=== PATIENT | female | born 1985 | race Caucasian/White ===

== ENCOUNTER 2020-11-08 19:21 | Emergency (ER) | payer OTHER, SELFPAY ==
--- NOTE | ~2020-11-08 | XR_ITS ---
EXAMINATION: XR TOES, LEFT CLINICAL INFORMATION: Trauma to the fifth toe. Deformity. COMPARISON: None TECHNIQUE: 3 views of the left toes were obtained. FINDINGS: There is a fracture of the midshaft of the proximal phalanx of fifth toe. There is an oblique fracture with displacement of the distal fracture fragment laterally. There is no dislocation. XR/XR toe LT min 2V IMPRESSION: Fracture of the proximal phalanx of fifth toe.
--- NOTE | 2020-11-08 19:55 | ED_ITS ---
HPI - Extremity Injury (Lower) General Chief Complaint: Extremity Injury, Lower Stated Complaint: toe inj Source: patient Mode of arrival: ambulatory Limitations: no limitations History of Present Illness HPI Narrative: 35-year-old female presents with the left 5th stubbed toe visibly dislocated. Patient has no other complaints at this time. MD complaint: foot injury Onset (ago): hour(s) (With the hour of arrival) Place: home Severity: moderate Severity scale (1-10): 7 Relieving factors: nothing Exacerbating factors: weight bearing, movement and palpation Context: direct blow Associated symptoms: snap/pop sensation and able to partially bear weight Other symptoms: none Related Data Allergies Allergy/AdvReac Type Severity Reaction Status Date / Time nickel [NICKEL] Allergy Unknown RASH Verified 11/08/20 20:26 Nickel Allergy Unknown unknown Uncoded 02/20/20 15:06 Pt states no known Allergy Unknown unknown Uncoded 02/20/20 15:06 food/medica Review of Systems Review of Systems: Constitutional: No Fever, No Chills ENT/Mouth: No Ear Pain, No Hoarseness, No sore throat Eyes: No Eye Pain, No Swelling, No Redness, No Foreign Body Cardiovascular: No Chest Pain, No SOB Respiratory: No Cough, No Dyspnea Gastrointestinal: No Nausea, No Vomiting, No Diarrhea, No abdominal Pain Genitourinary: No Dysuria, No Hematuria Musculoskeletal: positive left 5th toe pain, No Myalgias, No Joint Swelling Skin: No Skin lacerations, No rash Neuro: No Weakness, No Numbness, No Paresthesias, No Loss of Consciousness, No Dizziness, No Headache Psych: No Anxiety/Panic, No Depression Heme/Lymph: no easy bruising, no Lymphadenopathy Endocrine: No Polyuria, No Polydipsia Yes all other systems are reviewed and are negative [facility] Past Medical History Attestation statement: The following information was validated with the patient. Source: old records reviewed Medical History Anxiety History of cardiac murmur History of Ana Paula thyroiditis History of palpitations PCOS (polycystic ovarian syndrome) Surgical History H/O wisdom tooth extraction History of adenoidectomy History of sleeve gastrectomy History of tonsillectomy History of tubal ligation Family History Family History Father HTN (hypertension) Mother Asthma Son No problems noted. Daughter No problems noted. Sister No problems noted. Paternal Grandmother Breast cancer Maternal Aunt Uterine cancer Social History Social History Alcohol intake: current Alcohol intake frequency: a few times a month Advance Directives: No Advance Directives Information Provided: No Physical Exam Vital Signs: Vital Signs: Last Vital Signs Temp 97.0 F 11/08/20 20:03 Pulse 87 11/08/20 20:03 Resp 18 11/08/20 20:03 BP 165/85 H 11/08/20 20:03 Pulse Ox 98 11/08/20 20:03 Body Mass Index 27.4 Appearance: Alert. Oriented X3. No acute distress. Eyes: Pupils equal, round and reactive to light. ENT: Pharynx normal. Neck: Normal inspection. Neck supple. CVS: Normal heart rate and rhythm. Pulses normal. Respiratory: No respiratory distress. Breath sounds normal. Abdomen: Soft and nontender. Skin: Skin warm and dry. Normal skin color. Normal skin turgor. Extremities: No lower extremity edema. Visibly displaced left toe. Neuro: No motor deficit. No sensory deficit. Course Course Course Narrative: 35-year-old female presents with a displaced left 5th toe after stubbing it. Plan of care is for x-ray and to pull the toe back into place and lillian tape. Will give Motrin for pain management. Toe reduced into place. Patient tolerated procedure well. Brisk capillary refill and neurovascularly intact. Patient verbalized understanding of and agrees to plan of care discharge home. MDM - Extremity Injury (Lower) MDM Narrative Medical decision making narrative: Toe dislocation Differential Diagnosis Differential diagnosis: Likely fracture of toe Medical Records Attestation: I reviewed the patient's medical records. Imaging Data Foot x-ray: Attestation: I personally reviewed and interpreted this imaging study as follows: Discharge Plan Discharge Clinical Impression: Fracture of toe Qualifiers: Encounter type: initial encounter Toe: lesser toe Fracture type: closed Phalanx: distal Physeal involvement: unspecified Patient Disposition: Home, Self-Care Instructions: Toe Fracture (ED), R.I.C.E. Treatment (ED) Additional Instructions: You were evaluated for left toe fracture. We pulled this toe in place. Please keep the toes lillian-taped for the next 2 weeks. You may consider following up with primary care for pain persists. Use ice and elevation to help reduce swelling. Use Tylenol or Motrin as needed for pain management. Thank you for choosing this emergency department for evaluation. Please follow-up with primary care physician as needed. Return to the emergency department for any new, concerning, or worsening symptoms. Stand Alone Forms: Work/School Release
[2020-11-08 20:03] VITALS: BP 165/85; PULSE 87; RESP 18; TEMP 36.1; O2SAT 98; BMI 27.4
[2020-11-08] MEDS: Ibuprofen 600 MG TABLET PO (20:25)
== END 2020-11-08 21:10 | disposition home or self-care (01) ==
PROVIDERS: Emergency Provider Internal Medicine; PCP Internal Medicine
DX: S92.532A Displaced fracture of distal phalanx of left lesser toe(s), initial encounter for closed fracture (principal); W22.09XA Striking against other stationary object, initial encounter; Y93.9 Activity, unspecified; Y92.9 Unspecified place or not applicable; Y99.9 Unspecified external cause status
CPT/HCPCS: 28515; 73660; 99283; 99284

== ENCOUNTER → 2020-12-09 08:39 | Outpatient (BNVA) | payer OTHER, SELFPAY | PROVIDERS: PCP Internal Medicine; Visit Provider Surgery ==

== ENCOUNTER 2020-12-10 06:00 | Outpatient (REF) | payer OTHER, SELFPAY ==
[2020-12-10 08:06] LABS: MANUAL DIFF FLAG NO
[2020-12-10 08:13] LABS: Basophils Percent Auto 0.8 % (0-2); Eosinophils Absolute Auto 0.1 X10*3/uL (0.0-0.4); Eosinophils Percent Auto 2.6 % (0-4); Hematocrit 37.3 % (37-47); Hemoglobin 11.5 g/dl (12.0-16.0); Imm Gran Abs Auto 0.01 X10*3/uL (0.00-0.03); Imm Gran Pct Auto 0.2 % (0.0-0.4); Lymphocytes Absolute Auto 1.9 X10*3/uL (1.2-4.9); Lymphocytes Percent Auto 38.2 % (20-40); Mean Corpuscular HGB Conc 30.8 g/dl (31.0-35.0); Mean Corpuscular Hemoglobin 25.2 pg (27.0-33.0); Mean Corpuscular Volume 81.8 fL (80-98); Mean Platelet Volume 12.1 fL (9.4-12.3); Monocytes Absolute Auto 0.4 X10*3/uL (0.1-1.2); Monocytes Percent Auto 8.7 % (2-11); Neutrophils Absolute Auto 2.4 X10*3/uL (2.0-8.3); Neutrophils Percent Auto 49.5 % (45-73); Platelet Count 230 X10*3/uL (160-400); Red Blood Count 4.56 X10*6/uL (4.20-5.50); Red Cell Distribution Width 14.7 % (11.0-16.0); White Blood Count 4.9 X10*3/uL (4.8-10.8)
[2020-12-10 08:29] LABS: Estimated Average Glucose 97 mg/dL
[2020-12-10 09:02] LABS: Alanine Aminotransferase 19 U/L (0-31); Albumin Level 4.2 g/dL (3.5-5.0); Alkaline Phosphatase 65 U/L (39-117); Anion Gap 11 (12-20); Aspartate Amino Transferase 20 U/L (5-31); Bilirubin Total 0.5 mg/dL (0.0-1.0); Blood Urea Nitrogen 13 mg/dL (9-16); C Reactive Protein 0.06 mg/dL (< or = 0.50); Calcium 8.9 mg/dL (8.4-10.2); Carbon Dioxide 29 mmol/L (22-29); Chloride 108 mmol/L (96-108); Cholesterol 157 mg/dL; Estimated Glomerular Filt Rate > 60; Glucose Fasting 87 mg/dL (60-99); HDL Cholesterol 54 mg/dL; Iron 57 mcg/dL (30-160); LDL Cholesterol Calculated 95 mg/dl; Percent Iron Saturation 14 % (15-50); Potassium 4.4 mmol/L (3.3-5.1); Sodium 144 mmol/L (135-145); Total Iron Binding Capacity 414 mcg/dL (228-428); Total Protein 6.2 g/dL (6.5-8.0); Triglycerides 43 mg/dL; Unsaturated Iron Binding 357 ug/dL
[2020-12-10 09:05] LABS: Vitamin B12 478 pg/mL (200-900)
[2020-12-10 09:23] LABS: Thyroid Stimulating Hormone 1.51 uIU/mL (0.32-4.0); Vitamin D 25-OH Total 31.1 ng/mL (>30)
[2020-12-14 08:21] LABS: Zinc 75 mcg/dL (60-130)
[2020-12-15 11:01] LABS: Vitamin B1 <6 nmol/L (8-30)
[2020-12-16 02:17] LABS: Vitamin A 34 mcg/dL (38-98)
== END 2020-12-10 06:01 | disposition home or self-care (01) ==
LOC: HO.LAB 06:00
PROVIDERS: PCP Internal Medicine; Visit Provider Surgery
DX: Z01.818 Encounter for other preprocedural examination (principal); K91.2 Postsurgical malabsorption, not elsewhere classified; Z90.3 Acquired absence of stomach [part of]
CPT/HCPCS: 36415; 80053; 80061; 82306; 82607; 83036; 83540; 84425; 84443; 84590; 84630; 85025; 86140

== ENCOUNTER 2020-12-25 04:36 | Emergency (ER) | payer OTHER, SELFPAY ==
--- NOTE | ~2020-12-25 | XR_ITS ---
EXAMINATION: XR SHOULDER, RIGHT CLINICAL INFORMATION: Shoulder pain COMPARISON: None TECHNIQUE: Three views of the right shoulder. FINDINGS: Small calcifications adjacent to the humeral head due to calcific tendinosis/bursitis. Largest calcification measuring about 4 mm. The glenohumeral joint and the acromioclavicular joints are normal. XR/XR shoulder RT min 2V IMPRESSION: Calcific tendinosis/bursitis.
[2020-12-25 04:44] VITALS: BP 159/83; PULSE 94; RESP 16; TEMP 36.6; O2SAT 99; BMI 27.4
--- NOTE | 2020-12-25 05:20 | ED_ITS ---
HPI - Extremity Problem General Chief complaint: Extremity Injury, Upper Stated complaint: Shoulder pain Time Seen by Provider: 12/25/20 05:20 Source: patient Mode of arrival: ambulatory Limitations: no limitations History of Present Illness HPI Narrative: 35-year-old female came in for evaluation of her right shoulder pain. This is a 35-year-old came in for evaluation of right shoulder pain that started 5 days ago after was kayaking, patient also work which she has to carry boxes, pain right shoulder is gradually getting worse since 5 days ago, increased with movement, nothing relieves the pain, no trauma or falling down. Related Data Home Medications Medication Instructions Recorded Confirmed cholecalciferol (vitamin D3) 50 50 mcg PO DAILY 12/09/20 12/09/20 mcg (2,000 unit) capsule multivitamin (Daily Multi-Vitamin) 1 tab PO DAILY 12/09/20 12/09/20 vitamin B complex (B 1 tab PO DAILY 12/09/20 12/09/20 Complex-Vitamin B12) Previous Rx's Medication Instructions Recorded omeprazole 20 mg capsule,delayed 20 mg PO DAILY #30 cap 12/09/20 release thiamine HCl (vitamin B1) 100 mg 100 mg PO DAILY #30 tab 12/16/20 tablet vitamin A palmitate 10,000 unit 20,000 unit PO DAILY 30 Days #60 12/16/20 tablet tab ibuprofen 600 mg tablet 600 mg PO Q8H PRN #20 tab 12/25/20 Allergies Allergy/AdvReac Type Severity Reaction Status Date / Time nickel [NICKEL] Allergy Unknown RASH Verified 12/09/20 08:44 Nickel Allergy Unknown unknown Uncoded 12/09/20 08:44 Pt states no known Allergy Unknown unknown Uncoded 12/09/20 08:44 food/medica Review of Systems Review of Systems: All other systems are reviewed and are negative Constitutional: Reports as per HPI and Reports no additional constitutional complaints Eyes: Reports as per HPI and Reports no additional eye complaints Reports system reviewed and no additional complaints, except as documented Cardiovascular: Reports as per HPI and Reports no additional cardiovascular complaints Respiratory: Reports as per HPI and Reports no additional respiratory complaints Gastrointestinal: Reports as per HPI and Reports no additional gastrointestinal complaints Genitourinary: Reports no additional female genitourinary complaints Musculoskeletal: Reports no additional musculoskeletal complaints Skin/Breast: Reports system reviewed and no additional complaints, except as docu Psychiatric: Reports no additional psychiatric complaints Endocrine: Reports no additional endocrine complaints Hematologic/Lymphatic: Reports no additional hematologic/lymphatic complaints Allergic/Immunologic: Reports no additional allergic/immunologic complaints Reports system reviewed and no additional complaints, except as documented and Reports Abnormal speech present [facility] Past Medical History Medical History Anxiety History of cardiac murmur History of Ana Paula thyroiditis History of palpitations PCOS (polycystic ovarian syndrome) Surgical History H/O wisdom tooth extraction History of adenoidectomy History of sleeve gastrectomy History of tonsillectomy History of tubal ligation Family History Family History Father HTN (hypertension) Mother Asthma Son No problems noted. Daughter No problems noted. Sister No problems noted. Paternal Grandmother Breast cancer Maternal Aunt Uterine cancer Social History Social History Alcohol intake: current Alcohol intake frequency: a few times a month Patient Tobacco Use Status: Former Tobacco user Advance Directives: No Advance Directives Information Provided: No Patient : No Physical Exam Vital Signs: Vital Signs: Last Vital Signs Temp 97.8 F 12/25/20 04:44 Pulse 94 12/25/20 04:44 Resp 16 12/25/20 04:44 BP 159/83 H 12/25/20 04:44 Pulse Ox 99 12/25/20 04:44 Body Mass Index 27.4 Vital signs have been reviewed as appeared to be correct. Blood pressure elevated.Heart rate normal. Respiration rate normal. Temperature normal. Oxygen saturation normal. Appearance: Alert. Oriented X3. No acute distress. Head: Normal external exam. Normocephalic. Atraumatic. No Duncan signs noted. No raccoon eyes noted Eyes: PERRLA. EOMI. Conjunctiva and sclera normal. Eyelids normal. ENT: TM's Normal. Pharynx normal. Uvula midline. Moist mucous membranes. No trismus noted. No drooling noted. No muffled voice noted. Neck: Normal inspection. Neck supple. FROM. No adenopathy. Thyroid Normal. No meningeal signs. No neck mass noted. CVS: Normal heart rate and rhythm. Heart sound normal. No murmurs noted. Pulses normal throughout. Respiratory: No respiratory distress. Painless inspiration. Breath sounds normal. No wheezes/rales/rhonchi noted. Chest nontender. No accessory muscle usage noted or decreased air movement noted. Abdomen: Soft and nontender. Bowel sounds normal in all 4 quadrants. No distention noted. No organomegaly noted. No visible injury noted. Back: No CVA tenderness. Full range of motion noted. Skin: Skin warm and dry. Normal skin color. Normal skin turgor. No rashes/lesions/lacerations noted. Extremities: Right shoulder held and adduction position, unable to abduct the right shoulder, unable to raise the shoulder beyond 15 degree, no deformity, no step-off. Neurovascularly intact. Neuro: Oriented X 3. Cranial nerve exam: II-XII are grossly intact No motor deficit. No sensory deficit. Reflexes normal. Course Course Course Narrative: Assessment and plan. 35-year-old female with right shoulder pain and tenderness gradual onset since 5 days ago after kayaking with no definitive trauma or fall. Rest, ice, sling, NSAIDs, follow up with Ortho. MDM - Extremity (Nontraumatic) Imaging Data Right shoulder x-ray: Radiologist's impression: Small calcifications adjacent to the humeral head due to calcific tendinosis/bursitis. Largest calcification measuring about 4 mm. The glenohumeral joint and the acromioclavicular joints are normal.? Discharge Plan Discharge Clinical Impression: Right rotator cuff tendinitis Patient Disposition: Home, Self-Care Instructions: Rotator Cuff Tendinitis (ED) Prescriptions: New ibuprofen 600 mg tablet 600 mg PO Q8H PRN (Reason: pain) Qty: 20 RF: 0 No Action thiamine HCl (vitamin B1) 100 mg tablet 100 mg PO DAILY Qty: 30 RF: 0 vitamin A palmitate 10,000 unit tablet 20,000 unit PO DAILY 30 Days Qty: 60 RF: 0 multivitamin [Daily Multi-Vitamin] Tablet 1 tab PO DAILY RF: 0 vitamin B complex [B Complex-Vitamin B12] Tablet 1 tab PO DAILY RF: 0 cholecalciferol (vitamin D3) 50 mcg (2,000 unit) capsule 50 mcg PO DAILY RF: 0 omeprazole 20 mg capsule,delayed release(DR/EC) 20 mg PO DAILY Qty: 30 RF: 12 Referrals: Zia Mckinney MD [Physician] - 2 days Stand Alone Forms: Work/School Release
[2020-12-25] MEDS: Ibuprofen 600 MG TABLET PO (06:11)
== END 2020-12-25 06:21 | disposition home or self-care (01) ==
PROVIDERS: Emergency Provider Emergency Medicine; PCP Internal Medicine
DX: M75.31 Calcific tendinitis of right shoulder (principal); M25.511 Pain in right shoulder
CPT/HCPCS: 73030; 99284

== ENCOUNTER 2022-02-13 12:59 | Emergency (ER) | payer OTHER, SELFPAY ==
[2022-02-13 13:02] VITALS: BP 173/92; PULSE 99; RESP 18; TEMP 36.9; O2SAT 100; BMI 27.8
[2022-02-13 15:00] VITALS: BP 150/93; PULSE 77; RESP 16; TEMP 36.3; O2SAT 100
--- NOTE | 2022-02-13 15:08 | ED_ITS ---
HPI - Back Pain/Injury General Chief Complaint: Back Pain/Injury Stated Complaint: back pain Time Seen by Provider: 02/13/22 14:57 Source: patient Mode of arrival: ambulatory History of Present Illness HPI Narrative: 36-year-old female with a past medical history of anxiety, PCOS, presenting to the ED complaining of low back pain > left x4 weeks with intermittent radiation down RLE. Denies known injury, trauma or fall. Does report when in [place] for vacation slipped on rocks, denies landing/falling on back. Denies numbness, tingling, weakness, urine incontinence/retention, fever MD elicited complaint: back pain and back injury Onset (ago): week(s) Related Data Home Medications Medication Instructions Recorded Confirmed cholecalciferol (vitamin D3) 50 50 mcg PO DAILY 12/09/20 12/09/20 mcg (2,000 unit) capsule multivitamin (Daily Multi-Vitamin 1 tab PO DAILY 12/09/20 12/09/20 tablet) vitamin B complex (B 1 tab PO DAILY 12/09/20 12/09/20 Complex-Vitamin B12 tablet) Previous Rx's Medication Instructions Recorded omeprazole 20 mg capsule,delayed 20 mg PO DAILY #30 caps 12/09/20 release thiamine HCl (vitamin B1) 100 mg 100 mg PO DAILY #30 tabs 12/16/20 tablet vitamin A palmitate 10,000 unit 20,000 unit PO DAILY 30 days #60 12/16/20 tablet tabs ibuprofen 600 mg tablet 600 mg PO Q8H PRN pain #20 tabs 12/25/20 acetaminophen 500 mg tablet 500 mg PO Q6H PRN fever or pain 02/13/22 (Tylenol Extra Strength) #14 tabs cyclobenzaprine 5 mg tablet 5 mg PO Q8H PRN pain (scale score 02/13/22 7-10) 5 days #14 tabs lidocaine 5 % topical patch 1 patch topical DAILY PRN pain #30 02/13/22 (Lidoderm) ea naproxen 500 mg tablet 500 mg PO BID PRN pain 10 days #20 02/13/22 tabs Allergies Allergy/AdvReac Type Severity Reaction Status Date / Time nickel [NICKEL] Allergy Unknown RASH Verified 12/09/20 08:44 Nickel Allergy Unknown unknown Uncoded 12/09/20 08:44 Pt states no known Allergy Unknown unknown Uncoded 12/09/20 08:44 food/medica Review of Systems Review of Systems: Constitutional: No Fever, No Chills ENT/Mouth: No Ear Pain, No Nasal Congestion, No sore throat, No Rhinorrhea, No Swallowing Difficulty Cardiovascular: No Chest Pain, No SOB Respiratory: No Cough, No Sputum, No Wheezing Gastrointestinal: No Nausea, No Vomiting, No Diarrhea, No Constipation, No Abdominal pain Genitourinary: No Dysuria, No Urinary Frequency, No Hematuria, No Urinary Incontinence/retention, No Flank Pain Musculoskeletal: + joint pain, No Myalgias, No Joint Swelling Skin: No Skin Lesions, No rash Neuro: No Weakness, No Numbness, No Paresthesias Yes all other systems are reviewed and are negative Constitutional: Constitutional: Reports as per [facility] Past Medical History Attestation statement: The following information was validated with the patient. Medical History Anxiety History of cardiac murmur History of Ana Paula thyroiditis History of palpitations PCOS (polycystic ovarian syndrome) Surgical History H/O wisdom tooth extraction History of adenoidectomy History of sleeve gastrectomy History of tonsillectomy History of tubal ligation Family History Family History Father HTN (hypertension) Mother Asthma Son No problems noted. Daughter No problems noted. Sister No problems noted. Paternal Grandmother Breast cancer Maternal Aunt Uterine cancer Social History Social History Alcohol intake: current Alcohol intake frequency: holidays/special occasions only Patient Tobacco Use Status: Former Tobacco user Advance Directives: No Advance Directives Information Provided: No Physical Exam Vital Signs: Vital Signs: Last Vital Signs Temp 97.3 F 02/13/22 15:00 Pulse 77 02/13/22 15:00 Resp 16 02/13/22 15:00 BP 150/93 H 02/13/22 15:00 Pulse Ox 100 02/13/22 15:00 O2 Del Method 02/13/22 15:00 BMI result Body Mass Index 27.8 Const: General: cooperative, healthy appearing and no acute distress Orientation/consciousness: patient oriented x3 Limitations: no limitations HEENT: Head: Yes normal to inspection and Yes atraumatic Ears: hearing ermelinda sly normal bilaterally General nose exam: Normal external nose present Face and sinus: Yes normal facial exam Eyes: General: appearance normal, both eyes and all related structures EOM: EOMs intact bilaterally Neck: Neck: Yes normal visual inspection and Yes no meningeal signs Resp: Effort & Inspection: normal respiratory effort and no respiratory distress Cardio: Rate: regular rate Heart sounds: S1 normal heart sound present and S2 normal heart sound present GI: Inspection: Yes normal to inspection : General: Yes no CVA tenderness Back/Spine/Pelvis: Other: No midline thoracic/lumbar spinous tenderness/step-off or deformity. + L sided lower buttock MSK tenderness to palpation Back: no CVA tenderness Skin: Rashes: no rashes Wounds: no wounds Neuro: Other: Strength intact throughout. No saddle anesthesia. Sensation intact to light touch. Neurovascular intact distally General: patient oriented x3, gait normal, tone normal, moves all extremities, no meningeal signs and no focal motor deficits Gait exam (Neuro): Normal gait present Motor exam (neuro): 5/5 motor strength present throughout and strength normal Extrem: General: Yes normal to inspection MDM - Back Pain/Injury MDM Narrative Medical decision making narrative: 36-year-old female with a past medical history of anxiety, PCOS, presenting to the ED complaining of low back pain > left x4 weeks with intermittent radiation down RLE. On exam vital signs stable, NAD, nontoxic appearing, no midline spinous tenderness throughout or red flag symptoms. Concern for MSK pain/strain vs muscle spasming vs herniated disc. Low suspicion for renal stone/pyelo, cauda equina, or cord compression Plan: Symptomatic treatment, PCP follow-up Differential Diagnosis Differential diagnosis: Likely lumbar radiculopathy, sciatica and strain of lumbar region Medical Records Attestation: I reviewed the patient's medical records. Lab Data Attestation: I reviewed the patient's lab results. Discharge Plan Discharge Clinical Impression: Strain of lumbar region, Lumbar radiculopathy Patient Disposition: Home, Self-Care Instructions: Low Back Strain (ED), Lumbar Radiculopathy (ED) Additional Instructions: Your pain is likely musculoskeletal Flexeril is a muscle relaxer, take at night as it makes you drowsy, do not drive, drink alcohol, or operate machinery while taking it Naproxen as an anti-inflammatory / pain medication, take with food Lidoderm patches are numbing patches, apply to painful area In addition take Tylenol at home If symptoms persist or worsen, pain becomes unbearable, you developed urinary retention or incontinence, or weakness return to the ED Prescriptions: New acetaminophen [Tylenol Extra Strength] 500 mg tablet 500 mg PO Q6H PRN (Reason: fever or pain) Qty: 14 0RF lidocaine [Lidoderm] 5 % adhesive patch,medicated 1 patch topical DAILY MDD remove after 12 hours PRN (Reason: pain) Qty: 30 0RF Rx Instructions: leave on most painful area for up to 12 hrs naproxen 500 mg tablet 500 mg PO BID PRN (Reason: pain) 10 Days Qty: 20 0RF cyclobenzaprine 5 mg tablet 5 mg PO Q8H PRN (Reason: pain (scale score 7-10)) 5 Days Qty: 14 0RF No Action thiamine HCl (vitamin B1) 100 mg tablet 100 mg PO DAILY Qty: 30 0RF vitamin A palmitate 10,000 unit tablet 20,000 unit PO DAILY 30 Days Qty: 60 0RF ibuprofen 600 mg tablet 600 mg PO Q8H PRN (Reason: pain) Qty: 20 0RF multivitamin [Daily Multi-Vitamin] Tablet 1 tab PO DAILY vitamin B complex [B Complex-Vitamin B12] Tablet 1 tab PO DAILY cholecalciferol (vitamin D3) 50 mcg (2,000 unit) capsule 50 mcg PO DAILY omeprazole 20 mg capsule,delayed release(DR/EC) 20 mg PO DAILY Qty: 30 12RF Referrals: Gary Lovelace DO, MD [Primary Care Provider] - 1 week Stand Alone Forms: Work/School Release
[2022-02-13] MEDS: Lidocaine 4 % Patch ADH..PATCH 1 PATCH TRANSDERMA (15:34)
[2022-02-13] MEDS: Ketorolac Tromethamine 30 MG/ML VIAL IM (15:34)
== END 2022-02-13 16:01 | disposition home or self-care (01) ==
PROVIDERS: Emergency Provider Emergency Medicine; PCP Internal Medicine
DX: S39.012A Strain of muscle, fascia and tendon of lower back, initial encounter (principal); W01.198A Fall on same level from slipping, tripping and stumbling with subsequent striking against other object, initial encounter; M54.16 Radiculopathy, lumbar region; Y93.89 Activity, other specified; Y92.89 Other specified places as the place of occurrence of the external cause; Y99.9 Unspecified external cause status
CPT/HCPCS: 96372; 99283; 99284; J1885

== ENCOUNTER 2022-05-14 06:03 | Outpatient (REF) | payer BC, SELFPAY ==
[2022-05-14 06:20] LABS: MANUAL DIFF FLAG NO
[2022-05-14 07:43] LABS: Basophils Percent Auto 1.1 % (0-2); Eosinophils Absolute Auto 0.1 X10*3/uL (0.0-0.4); Eosinophils Percent Auto 2.5 % (0-4); Hematocrit 36.2 % (37.0-47.0); Hemoglobin 11.5 g/dl (12.0-16.0); Lymphocytes Absolute Auto 1.5 X10*3/uL (1.2-4.9); Lymphocytes Percent Auto 40.9 % (20-40); Mean Corpuscular HGB Conc 31.8 g/dl (31.0-35.0); Mean Corpuscular Hemoglobin 26.4 pg (27.0-33.0); Monocytes Absolute Auto 0.3 X10*3/uL (0.1-1.2); Monocytes Percent Auto 8.2 % (2-11); Neutrophils Absolute Auto 1.7 x10*3/uL (2.0-8.3); Neutrophils Percent Auto 47.3 % (45-73); Platelet Count 228 X10*3/uL (160-400); Red Blood Count 4.36 X10*6/uL (4.20-5.50); Red Cell Distribution Width 13.7 % (11.0-16.0); White Blood Count 3.7 X10*3/uL (4.8-10.8)
[2022-05-14 08:16] LABS: Estimated Average Glucose 94 mg/dL; Hemoglobin A1c % 4.9 %
[2022-05-14 08:22] LABS: Alanine Aminotransferase 19 U/L (0-31); Albumin Level 3.9 g/dL (3.5-5.0); Alkaline Phosphatase 77 U/L (39-117); Anion Gap 14 (12-20); Aspartate Amino Transferase 25 U/L (5-31); Bilirubin Total 0.6 mg/dL (0.0-1.0); Blood Urea Nitrogen 12 mg/dL (9-16); C Reactive Protein < 0.04 mg/dL (< or = 0.50); Calcium 9.1 mg/dL (8.4-10.2); Carbon Dioxide 28 mmol/L (22-29); Chloride 105 mmol/L (96-108); Cholesterol 174 mg/dL; Estimated Glomerular Filt Rate > 60; Glucose Random 84 mg/dL (60-115); HDL Cholesterol 59 mg/dL; Iron 77 mcg/dL (30-160); LDL Cholesterol Calculated 104 mg/dl; Percent Iron Saturation 20 % (15-50); Potassium 4.5 mmol/L (3.3-5.1); Sodium 142 mmol/L (135-145); Total Iron Binding Capacity 376 mcg/dL (228-428); Triglycerides 59 mg/dL; Unsaturated Iron Binding 299 ug/dL
[2022-05-14 08:43] LABS: Ferritin 6 ng/mL (10-122); Insulin 4 uU/mL (2-29); TSH reflex Free T4 1.36 uIU/mL (0.32-4.0); Vitamin D 25-OH Total 39.5 ng/mL (>30)
[2022-05-14 08:54] LABS: Vitamin B12 498 pg/mL (200-900)
[2022-05-15 13:37] LABS: Calcium (PTHI) 9.1 mg/dL (8.6-10.2); PTHI 48 pg/mL (16-77)
[2022-05-17 23:06] LABS: Vitamin A 33 mcg/dL (38-98)
[2022-05-18 06:28] LABS: Vitamin B1 37 nmol/L (8-30)
[2022-05-18 15:38] LABS: Zinc 68 mcg/dL (60-130)
== END 2022-05-14 06:04 | disposition home or self-care (01) ==
LOC: HO.LAB 06:03
PROVIDERS: PCP Internal Medicine; Visit Provider Physician Assistant Surgical
DX: K91.2 Postsurgical malabsorption, not elsewhere classified (principal); Z90.3 Acquired absence of stomach [part of]
CPT/HCPCS: 36415; 80053; 80061; 82306; 82607; 82728; 82746; 83036; 83525; 83540; 83970; 84425; 84443; 84590; 84630; 85025; 86140

== ENCOUNTER → 2022-05-15 13:21 | Outpatient (BNVA) | payer BC, SELFPAY | PROVIDERS: PCP Internal Medicine; Visit Provider Physician Assistant Surgical | DX: E66.9 Obesity, unspecified (principal) ==

== ENCOUNTER 2022-10-01 12:51 | Emergency (ER) | payer OTHER, SELFPAY ==
[2022-10-01 13:31] VITALS: BP 161/106; PULSE 96; RESP 16; TEMP 36.7; O2SAT 100; BMI 27.6
--- NOTE | 2022-10-01 13:32 | ED.GENADULT ---
HPI - General Adult General Chief complaint: General Medical Stated complaint: tingling in hands and feet, pressure in head Time Seen by Provider: 10/01/22 15:52 Source: patient and family Mode of arrival: ambulatory Limitations: no limitations History of Present Illness HPI narrative: 37-year-old female presents to emergency department with her significant other for multiple complaints. Patient states that she has been noticing tingling to her perioral area her hands into her feet. That was her initial complaint and she complained about this to triage as well as myself when a finished doing this and explaining the plan as far as electrolytes specially since she recently also started Wellbutrin she states what about my back pain she has she has chronic back pain she has had multiple images of her back they never given her an answer and she thought that was related to her facial hand and feet numbing I did explain that is very unlikely that they are all related to the feet could be related. Related Data Home Medications Medication Instructions Recorded Confirmed cholecalciferol (vitamin D3) 50 50 mcg PO DAILY 12/09/20 05/15/22 mcg (2,000 unit) capsule multivitamin (Daily Multi-Vitamin 1 tab PO DAILY 12/09/20 05/15/22 tablet) vitamin B complex (B 1 tab PO DAILY 12/09/20 05/15/22 Complex-Vitamin B12 tablet) Previous Rx's Medication Instructions Recorded ibuprofen 600 mg tablet 600 mg PO Q8H PRN pain #20 tabs 12/25/20 vitamin A palmitate 3,000 mcg 10,000 unit PO DAILY #90 caps 05/19/22 (10,000 unit) capsule iron,carbonyl 65 mg-vitamin C 125 1 tab PO BEDTIME #90 tabs 05/20/22 mg tablet,delayed release (Vitron-C) prednisone 20 mg tablet 60 mg PO DAILY Asthma 5 days #15 10/01/22 tabs Allergies Allergy/AdvReac Type Severity Reaction Status Date / Time nickel [NICKEL] Allergy Unknown RASH Verified 10/01/22 13:31 Nickel Allergy Unknown unknown Uncoded 12/09/20 08:44 Pt states no known Allergy Unknown unknown Uncoded 12/09/20 08:44 food/medica Review of Systems Review of Systems: Review of systems: General: Patient denies any fever chills recent illness or falls Musculoskeletal: Lower back pain denies any or body aches or other injuries HEENT: denies headache, runny nose, ear pain Respiratory: denies shortness of breath, cough Cardiovascular: no chest pain or palpitations : denies dysuria, frequency Abdomen: no nausea vomiting denies abdominal pain Extremities: no swelling, no pain Skin: no diaphoresis Yes all other systems are reviewed and are negative PMFSH Past Medical History Medical History Anxiety History of cardiac murmur History of [place] thyroiditis History of palpitations PCOS (polycystic ovarian syndrome) Surgical History H/O wisdom tooth extraction History of adenoidectomy History of sleeve gastrectomy History of tonsillectomy History of tubal ligation Family History Family History Father HTN (hypertension) Mother Asthma Son No problems noted. Daughter No problems noted. Sister No problems noted. Paternal Grandmother Breast cancer Maternal Aunt Uterine cancer Social History Social History (Updated 05/15/22 @ 13:42 by Isabelle Sepulveda CMA) Alcohol intake: current Alcohol intake frequency: holidays/special occasions only Patient Tobacco Use Status: Former Tobacco user Smoked in Last 30 Days: No Use of substances other than those prescribed or required for medical reasons: No Advance Directives: No Advance Directives Information Provided: No Physical Exam ED Vital Signs: Vital Signs - 24 hr 10/01/22 13:31 10/01/22 15:35 10/01/22 16:01 Temperature 98.1 F Pulse Rate 96 118 H 111 H Respiratory Rate 16 18 18 Blood Pressure 161/106 H 154/101 H 151/101 H Pulse Oximetry 100 100 Oxygen Delivery Method Room Air Room Air Room Air BMI result Body Mass Index 27.6 Neurological exam: CN II- XII tested. Patient is alert and oriented to person place and time. Patient has no dysphagia or dysarthia, denies good vision in all four vision hernandez no nystagmus on exam, good strength to upper and lower extremities with normal reflexes to brachioradialis, wrist, patella and achilles. Negative romberg, good finger to nose and heel to munoz. General: Well-appearing well-nourished in no signs of distress HEENT: Normocephalic atraumatic Neck: No signs of JVD, no masses no tenderness or lymphadenopathy Cardiovascular: Regular rate and rhythm Respiratory: Clear to auscultation bilaterally Abdomen: Soft nontender no masses Extremities: Normal pedal pulses no signs of edema Skin: Dry warm no rashes Back: No tenderness full ROM Course Course Course Narrative: RME- 37 year old female presents for evaluation of tingling in her hands, feet, lips, posterior scalp. Lower back pain. Symptoms started 2 days ago. She reports starting Wellbutrin 4 days ago. History of intestinal absorption for labs including magnesium and phosphorus Medical Decision Making Medical Decision Making [facility] Narrative: Patient with multiple complaints she has tingling to her hands or feet which he thought were related to her back it did explain to her that this very likely is the innervation of her hands is not anything related to her back she has no back pain red flags she has no numbness no loss of bowel or bladder she has no fever she did have sleeve gastrectomy which could decrease her ability to absorb suture and vitamins but she is taking magnesium her labs are checked and are normal. Phosphorus and magnesium were also checked and are normal. I spent extra time explained to the patient that initially find everything here in the emergency department she has had some chronic back issues with worsening pain she states that she took muscle relaxer without complete resolution of her symptoms tried to explain the most relaxants her neck after that really treat pain or laxity muscles recommended short course of prednisone for the patient. This could be a simple as her recent start of her medication issues restart Wellbutrin 4 days ago. Differential Diagnosis Differential Diagnoses: The differential diagnosis associated with the presentation includes Electrolyte abnormality decreased absorption due to her gastrectomy chronic back pain reaction to her new medication 4 days ago she recently started Wellbutrin. Less likely cauda equina or other spinal issue. Lab Data [facility] Lab Attestation statement: I reviewed the patient's lab results. 10/01/22 13:57 10/01/22 13:57 Labs: Lab Results 10/01/22 10/01/22 Range/Units 13:57 13:57 WBC 6.6 (4.8-10.8) X10*3/uL RBC 4.49 (4.20-5.50) X10*6/uL Hgb 11.3 L (12.0-16.0) g/dl Hct 36.2 L (37.0-47.0) % MCV 80.6 (80.0-98.0) fL MCH 25.2 L (27.0-33.0) pg MCHC 31.2 (31.0-35.0) g/dl RDW 13.9 (11.0-16.0) % Plt Count 239 (160-400) X10*3/uL MPV 11.0 (9.4-12.3) fL Immature Gran % (Auto) 0.3 (0.0-0.4) % Neut % (Auto) 66.0 (45-73) % Lymph % (Auto) 23.6 (20-40) % Lewis % (Auto) 8.5 (2-11) % Eos % (Auto) 0.8 (0-4) % Baso % (Auto) 0.8 (0-2) % Lymph # (Auto) 1.6 (1.2-4.9) X10*3/uL Lewis # (Auto) 0.6 (0.1-1.2) X10*3/uL Eos # (Auto) 0.1 (0.0-0.4) X10*3/uL Baso # (Auto) 0.1 (0.0-0.2) X10*3/uL Abs Immat Gran (auto) 0.02 (0.00-0.03) X10*3/uL Absolute Neuts (auto) 4.4 (2.0-8.3) x10*3/uL Absolute Nucleated RBC 0.000 (0.0-0.012) X10*3/uL Nucleated RBC % (auto) 0.0 (0.0-0.2) /100WBC Sodium 142 (135-145) mmol/L Potassium 4.4 (3.3-5.1) mmol/L Chloride 107 (96-108) mmol/L Carbon Dioxide 28 (22-29) mmol/L Anion Gap 11 L (12-20) BUN 11 (9-16) mg/dL Creatinine 0.77 (0.5-1.4) mg/dL Estim Creat Clear Calc 106.8 Estimated GFR > 60 Random Glucose 99 (60-115) mg/dL Calcium 9.6 (8.4-10.2) mg/dL Phosphorus 3.4 (2.7-4.5) mg/dL Magnesium 2.1 (1.6-2.6) mg/dL Total Bilirubin 0.4 (0.0-1.0) mg/dL AST 23 (5-31) U/L ALT 19 (0-31) U/L Alkaline Phosphatase 79 (39-117) U/L Total Protein 6.7 (6.5-8.0) g/dL Albumin 4.3 (3.5-5.0) g/dL Lipase 24 (8-78) U/L Independent Historian Clinical information obtained from an independent historian. History obtained from or confirmed by: Spouse External Record Review External record reviewed: Inpatient record and Office record Discharge Plan Discharge Clinical Impression: Paresthesia and pain of both upper extremities, Paresthesia of both feet Patient Disposition: Home, Self-Care Instructions: Paresthesia (ED) Additional Instructions: You were seen in the emergency department for tingling of her hands feet mouth and head. You had labs done including phosphorus and magnesium which are not typically done in the emergency department workup which were all normal. Please call follow-up with her doctor if you have any other concerns please do not hesitate to come back to emergency department. I gave you information to follow-up with a neurologist about this recurrent tingling as well as her back pain. Prescriptions: New prednisone 20 mg tablet 60 mg PO DAILY 5 Days Qty: 15 0RF No Action vitamin A palmitate 10,000 unit capsule 10,000 unit PO DAILY Qty: 90 3RF Vitron-C 65 mg iron- 125 mg tablet,delayed release (DR/EC) 1 tab PO BEDTIME Qty: 90 3RF ibuprofen 600 mg tablet 600 mg PO Q8H PRN (Reason: pain) Qty: 20 0RF multivitamin [Daily Multi-Vitamin] Tablet 1 tab PO DAILY vitamin B complex [B Complex-Vitamin B12] Tablet 1 tab PO DAILY cholecalciferol (vitamin D3) 50 mcg (2,000 unit) capsule 50 mcg PO DAILY Referrals: Shawanda Diaz MD [Physician] - (Please call to follow up for your hands and feet tingling. If you have any other concerns please return to the ED.)
[2022-10-01 14:00] LABS: MANUAL DIFF FLAG NO
[2022-10-01 14:01] LABS: Basophils Absolute Auto 0.1 X10*3/uL (0.0-0.2); Basophils Percent Auto 0.8 % (0-2); Eosinophils Absolute Auto 0.1 X10*3/uL (0.0-0.4); Eosinophils Percent Auto 0.8 % (0-4); Hematocrit 36.2 % (37.0-47.0); Hemoglobin 11.3 g/dl (12.0-16.0); Imm Gran Abs Auto 0.02 X10*3/uL (0.00-0.03); Imm Gran Pct Auto 0.3 % (0.0-0.4); Lymphocytes Absolute Auto 1.6 X10*3/uL (1.2-4.9); Lymphocytes Percent Auto 23.6 % (20-40); Mean Corpuscular HGB Conc 31.2 g/dl (31.0-35.0); Mean Corpuscular Hemoglobin 25.2 pg (27.0-33.0); Mean Corpuscular Volume 80.6 fL (80.0-98.0); Monocytes Absolute Auto 0.6 X10*3/uL (0.1-1.2); Monocytes Percent Auto 8.5 % (2-11); Neutrophils Absolute Auto 4.4 x10*3/uL (2.0-8.3); Platelet Count 239 X10*3/uL (160-400); Red Blood Count 4.49 X10*6/uL (4.20-5.50); Red Cell Distribution Width 13.9 % (11.0-16.0); White Blood Count 6.6 X10*3/uL (4.8-10.8)
[2022-10-01 14:21] LABS: Alanine Aminotransferase 19 U/L (0-31); Albumin Level 4.3 g/dL (3.5-5.0); Alkaline Phosphatase 79 U/L (39-117); Anion Gap 11 (12-20); Aspartate Amino Transferase 23 U/L (5-31); Bilirubin Total 0.4 mg/dL (0.0-1.0); Blood Urea Nitrogen 11 mg/dL (9-16); Calcium 9.6 mg/dL (8.4-10.2); Carbon Dioxide 28 mmol/L (22-29); Chloride 107 mmol/L (96-108); Creatinine Clr Calc Pharmacy 106.8; Estimated Glomerular Filt Rate > 60; Glucose Random 99 mg/dL (60-115); Lipase 24 U/L (8-78); Magnesium 2.1 mg/dL (1.6-2.6); Phosphorus 3.4 mg/dL (2.7-4.5); Potassium 4.4 mmol/L (3.3-5.1); Sodium 142 mmol/L (135-145); Total Protein 6.7 g/dL (6.5-8.0)
[2022-10-01 15:35] VITALS: BP 154/101; PULSE 118; RESP 18
--- NOTE | 2022-10-01 15:40 | PC.NURSE ---
Alert and oriented, states she is having tingling in lips, mouth, hands, and feet. States this start yesterday. Also complains of deep muscle cramps in bilateral legs, states starts in her shins and extends to lower ankle. has chronic back pain that has been worked up by her pcp but with no explanation for why she has the pain. States no sob or chest pain but feels like she is breathing swallow. was started on Wellbutrin about 4 days ago. Denies any numbness in hands or feet. Denies eating anything different than normal. 100% on RA
--- NOTE | 2022-10-01 15:46 | PC.NURSE ---
Also reports pressure to back of head that started about a week ago that comes and goes.
[2022-10-01 16:01] VITALS: BP 151/101; PULSE 111; RESP 18; O2SAT 100
--- NOTE | 2022-10-01 17:16 | PC.NURSE ---
Attempted to medicated with ordered medications patient stating that she forogt she is having a procedure tomorrow and is NPO. Declined ordered medications. Reviewed discharge plan patient verbalized understanding
== END 2022-10-01 17:18 | disposition home or self-care (01) ==
PROVIDERS: Physician Assistant; Emergency Provider Student in an Organized Health Care Education/Training Program; PCP Internal Medicine
DX: R20.2 Paresthesia of skin (principal); Z90.3 Acquired absence of stomach [part of]
CPT/HCPCS: 36415; 80053; 83690; 83735; 84100; 85025; 99283; 99284

== ENCOUNTER 2024-09-07 08:03 | Outpatient (REF) | payer BC, SELFPAY ==
--- OUTSIDE RECORDS SUMMARY | 2024-09-07 08:06 | XMS_ITS | Encounter Summary ---
Author Organization [facility] Address [address] [place] [address] Care Team Providers Care Clinical Informatics Director Name Role Phone Pcp, No Primary Care Provider Unavailabl e Encounter Details Date Type Department Care Team (Late st Contact Info) Description 03/11/2024 Scanned Document [address] [place] [id number] Provider, Generic Social History Tobacco Use Types Packs/Day Years Used Date Smoking Tobacco: Never Assessed Comments Unknown Sex and Gender Information Value Date Recorded Sex Assigned at Not on file Legal Sex Female 3:07 PM EST Gender Identity Not on file Sexual Orientation Not on file documented as of this encounter Plan of Treatment Not on file documented as of this encounter Visit Diagnoses Not on filedocumented in this encounter Care Teams Clinical Informatics Director Relationship Specialty Start Date End Date Pcp, No PCP - General General Medicine 03/11/24 documented as of this encounter
--- OUTSIDE RECORDS SUMMARY | 2024-09-07 08:06 | XMS_ITS | Clinical Summary ---
Author Organization [facility] Address [address] [place] [address] Care Team Providers Care Flash Designer Name Role Phone Pcp, No Primary Care Provider Unavailabl e Allergies No known active allergies Medications No known medications Active Problems No known active problems Social History Tobacco Use Types Packs/Day Years Used Date Smoking Tobacco: Never Assessed Comments Unknown Sex and Gender Information Value Date Recorded Sex Assigned at Not on file Legal Sex Female 3:07 PM EST Gender Identity Not on file Sexual Orientation Not on file Last Filed Vital Signs Vital Sign Reading Time Taken Comments Blood Pressure 133/82 03/11/2024 3:26 PM EST Pulse 92 03/11/2024 3:26 PM EST Temperature 36.5 ??C (97.7 ??F) 03/11/2024 3:26 PM ES T Respiratory Rate 16 03/11/2024 3:26 PM EST Oxygen Saturation 99% 03/11/2024 3:26 PM EST Inhaled Oxygen Concentration - - Weight 71.7 kg (158 lb) 03/11/2024 3:26 PM EST Height 170.2 cm (5' 7 ) 03/11/2024 3:26 PM EST Body Mass Index 24.75 03/11/2024 3:26 PM EST Plan of Treatment Health Maintenance Due Date Last Done Comments Hepatitis C Virus Screening 1983 HIV Screening 02/20/1996 DTaP/Tdap/Td Vaccines (1 - Tdap) 2002 Hepatitis B Vaccines (1 of 3 - 19+ 3-dose series) 2002 Pap Smear (Ages 21-65) 02/20/2004 Mammogram 2023 COVID-19 Vaccine ( - 2023-2 5 season) 2023 Influenza Vaccine 11/24/2024 HPV Vaccines Aged Out No longer eligi ble based on patient's age to complete this topic Pneumococcal Vaccine: Pediat merle (0-5 Years) and At-Risk Patients (6 to 49 Years) Aged Out No longer eligible b ased on patient's age to complete this topic Insurance [facility] - PPO Care Teams Flash Designer Relationship Specialty Start Date End Date Pcp, No PCP - General General Medicine 03/11/24
--- OUTSIDE RECORDS SUMMARY | 2024-09-07 08:06 | XMS_ITS | Encounter Summary ---
Author Organization [facility] Address [address] [place] [address] Care Team Providers Care Wireless Internet Installer Name Role Phone Pcp, No Primary Care Provider Unavailabl e Encounter Details Date Type Department Care Team (Late st Contact Info) Description 03/11/2024 Scanned Document [address] [place] [id number] Provider, Generic Social History Tobacco Use [...] on filedocumented in this encounter Care Teams Wireless Internet Installer Relationship Specialty Start Date End Date Pcp, No PCP - General General Medicine 03/11/24 documented as of this encounter
--- OUTSIDE RECORDS SUMMARY | 2024-09-07 08:06 | XMS_ITS | Clinical Summary ---
Author Organization [facility] [address] [place] [address] [place] [phone] Phone Care Team Providers Care Superintendent Construction Name Role Phone Ameya Garcia MD Primary Care Provider Allergies Active Allergy Reactions Criticality Noted Date Comments Nickel 09/08/2017 Medications ferrous sulfate 325 mg (65 mg iron) EC tablet Take 1 tablet (325 mg total) by mouth 1 (one) time each day with breakfast. Do not crush, chew, or split. 90 each 1 03/27/2024 Active Active Problems Problem Noted Date Diagnosed Date Anxiety 03/22/2024 Morbid obesity with BMI of 4 0.0-44.9, adult ([facility] V24, [facility] V28) 03/22/2024 Other fatigue 11/12/2022 PCOS (polycystic ovarian syndrome) 09/15/2017 Migraine 09/15/2017 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 Hyperlipidemia 09/15/2017 Vitamin D deficiency 09/15/2017 Thyroid nodule 09/15/2017 Surgical History Surgery Date Site/Laterality Comments TONSILLECTOMY PROCEDURE: HISTORICAL TONSILLECTOMY TUBAL LIGATION PROCEDURE: HISTORICAL TUBAL LIGATION Medical History Medical History Date Comments PCOS (polycystic ovarian syndrome) 09/15/2017 DX:PCOS (polycystic ovarian syndrome) Migraine 09/15/2017 DX:Migraine 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 DX:Roldan em's thyroiditis Hyperlipidemia 09/15/2017 DX:Hyperlipidemi a Vitamin D deficiency 09/15/2017 DX:Vitamin D deficiency Thyroid nodule 09/15/2017 DX:Thyroid nodul e Anxiety 09/15/2017 DX:Anxiety Morbid obesity with BMI of 4 0.0-44.9, adult ([facility] V24, [facility] V28) 08/03/2017 DX:Morbid obesity wit h BMI of 40.0-44.9, adult ([facility]); COMMENT: Bariatric Surgery Program Surgeon: Initial visit date 04/09/17 Psychiatry clearance: 06/09/17 Brittany PCP clearance: Provider and date: Dietitian-Dietary Clearance: 08/03/17 [facility] Requested weight loss: Last Surgery appt prior to Surgery: Prior Authorization Number: Surgery date goal: Family History Medical History Relation Name Comments Other: other Aunt unknown cancer Hypertension Father Coronary artery disease Maternal Grandfather Other: Other Maternal Grandmother hypothy roidism Asthma Mother arthritis Coronary artery disease Paternal Grandfather Breast cancer Paternal Grandmother diabet es, colon cancer Relation Name Status Comments Aunt Alive Father Maternal Grandfather Maternal Grandmother Mother Paternal Grandfather Paternal Grandmother Social History Tobacco Use Types Packs/Day Years Used Date Smoking Tobacco: Former Smokeless Tobacco: Never Tobacco Cessation:Counseling Given: Not Answered Alcohol Use Standard Drinks/Week Comments Yes 0 (1 standard drink = 0.6 oz pur e alcohol) Housing Instability Answer Date Recorde d Are you worried that in the next 2 months you may not have stable housing? No 03/22/2024 Food Access & Nutrition Answer Date Rec orded Do you have access to a vari ety of food including fruits and vegetables? Yes 03/22/2024 Access to Healthcare Answer Date Record ed Within the last 3 months, ho isabela many times did you visit the emergency department for your medical care? 1 03/22/2024 Health Literacy Answer Date Recorded How often do you need to hav e someone help you when you read instructions, pamphlets, or other written material from your doctor or pharmacy? Never 03/22/2024 Caregiver: How often do you need to have someone help you when you read instructions, pamphlets, or other written material from your doctor or pharmacy? Not on file 03/22/2024 Financial Risk Answer Date Recorded How hard is it for you to pa y for the very basics like food, housing, medical care, and air conditioning / heating? Not very hard 03/22/2024 Transportation Answer Date Recorded Has the lack of transportati on kept you from meetings, work, or from getting things needed for daily living? No Has the lack of transportati on kept you from medical appointments or from getting medications? No 03/22/2024 Social Isolation Answer Date Recorded How often do you feel lonely or isolated from th ose around you? Rarely 03/22/2024 Food Risk Answer Date Recorded Within the past 12 months we worried whether our food would run out before we got money to buy more. Never true 03/22/2024 Within the past 12 months th e food we bought just didn't last and we didn't have money to get more. Never true 03/22/2024 Dependent Care Answer Date Recorded Do you need help finding or paying for care for your loved ones. For example, early childhood services coordinator or elderly care for an older adult? No 03/22/2024 Education Answer Date Recorded Do you think completing more education or training, like finishing a GED, going to college, or learning a trade, would be helpful for you? No 03/22/2024 Employment and Income Answer Date Recor ded During the last four weeks, have you been actively looking for work? No 03/22/2024 Living Situation Answer Date Recorded What is your living situation? 1 05/22/2023 Comments No Sex and Gender Information Value Date Recorded Sex Assigned at Not on file Legal Sex Female 12:57 AM EST Gender Identity Not on file Sexual Orientation Not on file Obstetrics History Last Filed Vital Signs Vital Sign Reading Time Taken Comments Blood Pressure 120/70 03/27/2024 9:29 AM EST Pulse 68 03/27/2024 9:29 AM EST Temperature 37.1 ??C (98.8 ??F) 03/27/2024 9:29 AM ES T Respiratory Rate 15 03/27/2024 9:29 AM EST Oxygen Saturation 99% 03/27/2024 9:29 AM EST Inhaled Oxygen Concentration - - Weight 72 kg (158 lb 12.8 oz) 03/27/2024 9:29 AM EST Height 170.2 cm (5' 7 ) 03/27/2024 9:29 AM EST Body Mass Index 24.87 03/27/2024 9:29 AM EST Plan of Treatment Health Maintenance Due Date Last Done Comments Hepatitis B Vaccines (1 of 3 - 19+ 3-dose series) 2002 Cervical Cancer Screening: Pap Smear 01/22/2023 01/23/2020 COVID-19 Vaccine (3 - 2023-2 5 season) 2023 10/16/2020, 09/25/2020 Influenza Vaccine (Season Ended) 2024 Depression Screening 03/22/2025 03/22/2024 Social Influencers of Health Screening 03/22/2025 03/22/2024 Breast Cancer Screening 03/27/2025 Post poned from 1983 (Patient Refused) DTaP,Tdap,and Td Vaccines (1 - Tdap) 03/27/2025 Postponed from 02/19 (Patient Refused) Cholesterol Screening (Lipid Panel) 09/18/2027 09/17/2022 HIV Screening Completed 03/27/2024 Hepatitis C Screening Completed 03/27/2024 HIB Vaccines Aged Out No longer eligi ble based on patient's age to complete this topic HPV Vaccines Aged Out No longer eligi ble based on patient's age to complete this topic Hepatitis A Vaccines Aged Out No long er eligible based on patient's age to complete this topic IPV Vaccines Aged Out No longer eligi ble based on patient's age to complete this topic MMR Vaccines Aged Out No longer eligi ble based on patient's age to complete this topic Meningococcal ACWY Vaccine Aged Out N o longer eligible based on patient's age to complete this topic Meningococcal B Vaccine Aged Out No l onger eligible based on patient's age to complete this topic Pneumococcal Vaccine: Pediatrics (0 to 5 Years) and At-Risk Patients (6 to 64 Years) Aged Out No longer eligible b ased on patient's age to complete this topic RSV Immunization Patients Under 20 months Aged Out No longer eligible b ased on patient's age to complete this topic Varicella Vaccines Aged Out No longer eligible based on patient's age to complete this topic Procedures Procedure Name Priority Date/Time Associated Diagnosis Comments HEPATITIS C VIRUS QUANTITATIVE PCR Routine 03/27/2024 9:59 AM EST Vitamin D deficiency PCOS (polycystic ovarian syndrome) Other fatigue HIV 1, 2 ANTIBODY, P24 ANTIGEN WITH REFLEX TO DIFFERENTIATION Routine 03/27/2024 9:59 AM EST Screening for HIV (human immunodeficiency virus) LIPID PANEL Routine 09/17/2022 from Last 3 Months or Most Recently Relevant to Health Maintenance Results * HIV 1,2 antibody, p24 antigen with reflex to differentiation (03/27/2024 9:59 AM EST) Pathologist [facility] HIV Combo AB/AG Negative Negative LAB CHEMISTRY METHOD 03/27/2024 2:18 PM EST [facility] Blood Venous blood specimen / Unknown Venipuncture / Unknown 03/27/2024 9:59 AM EST 03/27/2024 10:06 AM EST Narrative [facility] - 03/27/2024 2:18 PM EST This assay is a 4th generation assay allowing for earlier detection of HIV infection by detecting the presence of the HIV-1 p24 antigen as well as the traditional antibodies to HIV type 1 (including group O) and type 2. ??Use of a 4th generation assay is the current CDC recommendation for HIV screening. us Merlyn Wing PA LAB BLOOD ORDERABLES Final Resul t Performing Organization Address City/[facility]/ZIP Co de Phone Number [facility] [address] [place] [address], [place] [phone] * Hepatitis C virus quantitative molecular study (03/27/2024 9:59 AM EST) [facility] HCV Qual Interp Not Detected Not Detected LAB MOLECULAR DIAGNOSTICS METHOD 03/28/2024 12:57 PM EST [facility] Comment:HCV RNA not detected , unable to report quantitative results. Blood Venous blood specimen / Unknown Venipuncture / Unknown 03/27/2024 9:59 AM EST 03/27/2024 10:06 AM EST us Merlyn Wing PA LAB BLOOD ORDERABLES Final Resul t Performing Organization Address City/[facility]/ZIP Co de Phone Number [facility] [address] [place] [address], [place] [phone] * (ABNORMAL) Lipid panel (09/17/2022) LDL/HDL Ratio 2 0 - 4 Triglycerides 94 0 - 150 mg/dL Cholesterol 219(A) 0 - 200 mg/dL HDL 91 >=40 mg/dL LDL Cholesterol 110(A) 0 - 100 mg/dL Blood Venous blood specimen / Unknown Historical Provider LAB BLOOD ORDERABLES Norah l Result from Last 3 Months or Most Recently Relevant to Health Maintenance [facility] Care Teams Superintendent Construction Relationship Specialty Start Date End Date Ameya Garcia MD [address] [place] [address] PCP - General 09/10/22
--- OUTSIDE RECORDS SUMMARY | 2024-09-07 08:06 | XMS_ITS ---
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
[2024-09-07 08:19] LABS: MANUAL DIFF FLAG NO
[2024-09-07 09:03] LABS: Estimated Average Glucose 103 mg/dL; Hemoglobin A1C 94.8117 umol/L; Hemoglobin A1c % 5.2 % (<6.0); Total Hemoglobin (HGBA1C) 2845.7123 umol/L
[2024-09-07 09:07] LABS: Basophils Absolute Auto 0.1 X10*3/uL (0.0-0.2); Basophils Percent Auto 1.4 % (0-2); Eosinophils Absolute Auto 0.1 X10*3/uL (0.0-0.4); Eosinophils Percent Auto 1.9 % (0-4); Hematocrit 34.5 % (37.0-47.0); Hemoglobin 10.9 g/dl (12.0-16.0); Imm Gran Abs Auto 0.01 X10*3/uL (0.00-0.03); Imm Gran Pct Auto 0.2 % (0.0-0.4); Lymphocytes Absolute Auto 1.4 X10*3/uL (1.2-4.9); Lymphocytes Percent Auto 32.7 % (20-40); Mean Corpuscular HGB Conc 31.6 g/dl (31.0-35.0); Mean Corpuscular Hemoglobin 23.5 pg (27.0-33.0); Mean Corpuscular Volume 74.5 fL (80.0-98.0); Mean Platelet Volume 12.3 fL (9.4-12.3); Monocytes Absolute Auto 0.3 X10*3/uL (0.1-1.2); Monocytes Percent Auto 7.5 % (2-11); Neutrophils Absolute Auto 2.3 x10*3/uL (2.0-8.3); Neutrophils Percent Auto 56.3 % (45-73); Platelet Count 256 X10*3/uL (160-400); Red Blood Count 4.63 X10*6/uL (4.20-5.50); Red Cell Distribution Width 18.5 % (11.0-16.0); White Blood Count 4.2 X10*3/uL (4.8-10.8)
[2024-09-07 09:29] LABS: Alanine Aminotransferase 23 U/L (0-31); Albumin Level 4.3 g/dL (3.5-5.0); Alkaline Phosphatase 78 U/L (39-117); Anion Gap 11 (12-20); Aspartate Amino Transferase 26 U/L (5-31); Bilirubin Total 0.5 mg/dL (0.0-1.0); Blood Urea Nitrogen 17 mg/dL (9-16); C Reactive Protein < 0.04 mg/dL (< or = 0.50); Calcium 9.2 mg/dL (8.4-10.2); Carbon Dioxide 28 mmol/L (22-29); Chloride 106 mmol/L (96-108); Cholesterol 176 mg/dL (<200); Estimated Glomerular Filt Rate > 60; Glucose Random 97 mg/dL (60-115); HDL Cholesterol 72 mg/dL (>40); Iron 30 mcg/dL (30-160); LDL Cholesterol Calculated 96 mg/dL (<100); Percent Iron Saturation 7 % (15-50); Potassium 4.2 mmol/L (3.3-5.1); Sodium 141 mmol/L (135-145); Total Iron Binding Capacity 419 mcg/dL (228-428); Total Protein 6.6 g/dL (6.5-8.0); Triglycerides 42 mg/dL (<150); Unsaturated Iron Binding 389 ug/dL
[2024-09-07 10:00] LABS: Folate 11.2 ng/mL (> or = 4.0); Vitamin B12 665 pg/mL (200-900)
[2024-09-07 10:03] LABS: Ferritin 7 ng/mL (10-250); TSH reflex Free T4 1.49 uIU/mL (0.32-4.0); Vitamin D 25-OH Total 31.6 ng/mL (>30)
[2024-09-07 10:23] LABS: Insulin 5 uU/mL (2-29)
[2024-09-11 08:19] LABS: Vitamin A 42 mcg/dL (38-98)
[2024-09-11 08:58] LABS: Zinc 59 mcg/dL (60-130)
[2024-09-13 08:03] LABS: Vitamin B1 10 nmol/L (8-30)
== END 2024-09-07 08:04 | disposition home or self-care (01) ==
LOC: HO.LAB 08:03
PROVIDERS: PCP Internal Medicine; Visit Provider Physician Assistant Surgical
DX: Z90.3 Acquired absence of stomach [part of] (principal)
CPT/HCPCS: 36415; 80053; 80061; 82306; 82607; 82728; 82746; 83036; 83525; 83540; 84425; 84443; 84590; 84630; 85025; 86140

== ENCOUNTER 2024-09-12 12:00 | Outpatient (AMB) | payer BC, SELFPAY ==
--- NOTE | 2024-09-12 12:00 | A.OFFVIS_ITS ---
VS Expanded 09/12/24 12:14 Height 5 ft 7 in Weight 167 lb BMI 26.2 Intake Visit Reasons: TV PO LSG 11/19/17 Allergies nickel [NICKEL] Allergy (Unknown, Verified 10/01/22 13:31) RASH Nickel Allergy (Unknown, Uncoded 12/09/20 08:44) unknown Pt states no known food/medica Allergy (Unknown, Uncoded 12/09/20 08:44) unknown Medication List - Last Reconciled 09/12/24 by LUCIANA Page ibuprofen 600 mg PO Q8H PRN iron,carbonyl-vitamin C 65 mg iron- 125 mg (Vitron-C) 1 tab PO DAILY multivitamin (Daily Multi-Vitamin tablet) 1 tab PO DAILY vitamin B complex (B Complex-Vitamin B12 tablet) 1 tab PO DAILY HPI Comments Details: This?is a?39?yo F who is s/p LSG 11/19/2017. Has not been seen in office since 05/15/22 at which time weight/BMI were 174.6/27.3. Current weight 174.6, BMI 27.3. Has been on an iron supplement for at least 3mo, was found to have iron deficiency anemia by PCP (Deepa). Also has very heavy periods. She was seen in the ED at [facility] for palpitations which were found to be due to her anemia. Present meal plan includes: does not eat meat or dairy eats mostly plant based foods will have protein drink in the morning PFSH Medical History Anxiety History of cardiac murmur History of Ana Paula thyroiditis History of palpitations PCOS (polycystic ovarian syndrome) Surgical History H/O wisdom tooth extraction History of adenoidectomy History of sleeve gastrectomy History of tonsillectomy History of tubal ligation Family History Father HTN (hypertension) Mother Asthma Son No problems noted. Daughter No problems noted. Sister No problems noted. Paternal Grandmother Breast cancer Maternal Aunt Uterine cancer Social History (Updated 05/15/22 @ 13:42 by Isabelle Sepulveda CMA) Alcohol intake: current Alcohol intake frequency: holidays/special occasions only Patient Tobacco Use Status: Former Tobacco user Telehealth Telehealth Telehealth Platform: Telephone Location of provider rendering services: practice address Location of patient: address on file Patient Identification confirmed using: Name, : Yes Telehealth method: voice only Patient verbally consented to treatment: Yes Patient verbally consented to billing insurance company: Yes Patient informed of any privacy concerns related to visit: Yes Minutes spent on Phone/Video with Pt.: 23 Assessment & Plan Assessment & Plan (1) Status post sleeve gastrectomy: Code(s): Z90.3 - Acquired absence of stomach [part of] Category: Surgical (2) Iron deficiency: Code(s): E61.1 - Iron deficiency Category: Medical (3) Overweight: Code(s): E66.3 - Overweight Category: Medical Plan Labs reviewed, symptomatic anemia, low zinc. Zinc supplemented. Encouraged pt to discuss iron infusions with her PCP, as PO iron may not be sufficient to correct her anemia. Sent pt a photo of [employer] [employer] [facility], pt interested in speaking with a dietitian. RTC 1 year per pt preference. Medications: New zinc gluconate 30 mg PO DAILY 90 tabs 3RF Refilled iron,carbonyl-vitamin C 65 mg iron- 125 mg (Vitron-C) swallow whole; do not chew/break/dissolve/open 1 tab PO DAILY 90 tabs 0RF E61.1 - Iron deficiency
[2024-09-12 12:14] VITALS: BMI 26.2
--- OUTSIDE RECORDS SUMMARY | 2024-09-12 13:40 | XMS_ITS | Clinical Summary ---
Author Organization [facility] [address] [place] [address] Address [address] [place] [address] Phone Care Team Providers Care Pillowcase Turner Name Role Phone Ameya Garcia MD Primary [...] obesity with BMI of 4 0.0-44.9, adult ([facility] V24, [facility] V28) 03/22/2024 Other fatigue 11/12/2022 PCOS (polycystic [...] obesity with BMI of 4 0.0-44.9, adult ([facility] V24, [facility] V28) 08/03/2017 DX:Morbid obesity wit h BMI of 40.0-44.9, adult ([facility]); COMMENT: Bariatric Surgery Program Surgeon: Initial visit [...] care for your loved ones. For example, director maternal child or elderly care for an older adult? [...] Procedure Name Priority Date/Time Associated Diagnosis Comments EXTERNAL CLINICAL LAB 09/07/2024 HEPATITIS C VIRUS QUANTITATIVE PCR Routine 03/27/2024 9:59 AM EST Vitamin D deficiency PCOS (polycystic ovarian syndrome) Other fatigue HIV 1, 2 ANTIBODY, P24 ANTIGEN WITH REFLEX TO DIFFERENTIATION Routine 03/27/2024 9:59 AM EST Screening for HIV (human immunodeficiency virus) LIPID PANEL Routine 09/17/2022 from Last 3 Months or Most Recently Relevant to Health Maintenance Results * External clinical lab (09/07/2024) Provider [facility] LAB BLOOD ORDERABLES Fin al Result * HIV 1,2 antibody, p24 antigen with reflex to differentiation (03/27/2024 9:59 AM EST) Pathologist [facility] HIV Combo AB/AG Negative Negative LAB CHEMISTRY METHOD 03/27/2024 2:18 PM EST [facility] Blood Venous blood specimen / Unknown Venipuncture / Unknown 03/27/2024 9:59 AM EST 03/27/2024 10:06 AM EST Narrative [facility] - 03/27/2024 2:18 PM EST This assay is a 4th generation assay allowing for earlier detection of HIV infection by detecting the presence of the HIV-1 p24 antigen as well as the traditional antibodies to HIV type 1 (including group O) and type 2. ??Use of a 4th generation assay is the current CDC recommendation for HIV screening. Merlyn CHOWDHURY LAB BLOOD ORDERABLES Final Resul t [facility] [address] [place] [address], * Hepatitis C virus quantitative molecular study (03/27/2024 9:59 AM EST) [facility] HCV Qual Interp Not Detected Not Detected LAB MOLECULAR DIAGNOSTICS METHOD 03/28/2024 12:57 PM EST [facility] Comment:HCV RNA not detected , unable to report quantitative results. Blood Venous blood specimen / Unknown Venipuncture / Unknown 03/27/2024 9:59 AM EST 03/27/2024 10:06 AM EST Merlyn Wing PA LAB BLOOD ORDERABLES Final Resul t [facility] [address] [place] [address], * (ABNORMAL) Lipid panel (09/17/2022) LDL/HDL Ratio 2 0 - 4 Triglycerides 94 0 - 150 mg/dL Cholesterol 219(A) 0 - 200 mg/dL HDL 91 >=40 mg/dL LDL Cholesterol 110(A) 0 - 100 mg/dL Blood Venous blood specimen / Unknown Historical Provider LAB BLOOD ORDERABLES Norah l Result from Last 3 Months or Most Recently Relevant to Health Maintenance Insurance [facility] Care Teams Pillowcase Turner Relationship Specialty Start Date End Date Ameya Garcia MD [address] [place] [address] PCP - General 09/10/22
--- OUTSIDE RECORDS SUMMARY | 2024-09-12 13:41 | XMS_ITS | Encounter Summary ---
Author Organization [facility] Address [address] [place] [address] Care Team Providers Care Road Repairer Name Role Phone Pcp, No Primary Care Provider Unavailabl e Encounter Details Date Type Department Care Team (Late st Contact Info) Description 03/11/2024 Scanned Document [address] [place] [phone] Provider, Generic Social History Tobacco Use [...] on filedocumented in this encounter Care Teams Road Repairer Relationship Specialty Start Date End Date Pcp, No PCP - General General Medicine 03/11/24 documented as of this encounter
--- OUTSIDE RECORDS SUMMARY | 2024-09-12 13:41 | XMS_ITS | Clinical Summary ---
Author Organization [facility] Address [address] [place] [address] Care Team Providers Care Marketing Administrative Assistant Name Role Phone Pcp, No Primary Care [...] patient's age to complete this topic Insurance [facility] [employer] - PPO Care Teams Marketing Administrative Assistant Relationship Specialty Start Date End Date Pcp, No PCP - General General Medicine 03/11/24
--- OUTSIDE RECORDS SUMMARY | 2024-09-12 13:41 | XMS_ITS | Encounter Summary ---
Author Organization [facility] Address [address] [place] [address] Care Team Providers Care Bingo Usher Name Role Phone Pcp, No Primary Care Provider Unavailabl e Encounter Details Date Type Department Care Team (Late st Contact Info) Description 03/11/2024 Scanned Document [address] [place] [phone] Provider, Generic Social History Tobacco Use [...] on filedocumented in this encounter Care Teams Bingo Usher Relationship Specialty Start Date End Date Pcp, No PCP - General General Medicine 03/11/24 documented as of this encounter
== END 2024-09-12 12:36 | disposition home or self-care (01) ==
LOC: HO.HBS 12:36
PROVIDERS: PCP Internal Medicine; Visit Provider Physician Assistant Surgical
DX: E66.3 Overweight (principal); Z90.3 Acquired absence of stomach [part of]; E61.1 Iron deficiency
CPT/HCPCS: 98968

== ENCOUNTER → 2024-09-12 12:00 | Outpatient (BNVA) | payer BC, SELFPAY | PROVIDERS: PCP Internal Medicine; Visit Provider Physician Assistant Surgical | DX: Z90.3 Acquired absence of stomach [part of] (principal); E61.1 Iron deficiency; E66.3 Overweight | CPT/HCPCS: 98968 ==